=== PATIENT | female | born 1950 | race Caucasian/White ===

== ENCOUNTER 2018-03-05 21:10 | Inpatient (IN) | payer SELFPAY ==
[2018-03-05] MEDS: IV NORMAL SALINE 1000ML BAG 1,000 ML IV ×2 (21:48→23:15)
[2018-03-05] MEDS: ONDANSETRON PF 4 MG/2 ML VIAL. IV (21:49)
[2018-03-05 21:51] LABS: BASO % 0 % (0-3); EOS % 0 % (0-3); HEMATOCRIT 47.5 % (36.0-47.0); HEMOGLOBIN 16.3 g/dL (12.0-15.5); LYMPH # 0.5 x10^3/uL (1.0-4.8); LYMPH % 6 % (24-48); MEAN CORPUSCULAR HEMOGLOBIN 33 pg (25-35); MEAN CORPUSCULAR HGB CONC 34 g/dL (31-37); MEAN CORPUSCULAR VOLUME 97 fL (79-100); MONO # 0.3 x10^3/uL (0.0-1.1); MONO % 4 % (0-9); NEUT # 7.8 x10^3uL (1.8-7.7); NEUT % 90 % (31-73); PLATELET COUNT 244 x10^3/uL (140-400); RED BLOOD COUNT 4.88 x10^6/uL (3.50-5.40); RED CELL DISTRIBUTION WIDTH 13.6 % (11.5-14.5); WHITE BLOOD COUNT 8.6 x10^3/uL (4.0-11.0)
[2018-03-05 21:54] LABS: ADD MAN DIFF? YES; AGAP ISTAT 17 mmol/L (6-14); BUN ISTAT 23 mg/dL (8-26); CHLORIDE ISTAT 105 mmol/L (98-110); CREATININE ISTAT 0.7 mg/dL (0.5-1.4); GLUCOSE ISTAT 142 mg/dL (70-99); HEMATOCRIT ISTAT 49 % (36-40); HEMOGLOBIN ISTAT 16.7 g/dL (12-15); ION CA ISTAT 1.28 mmol/L (1.13-1.32); POTASSIUM ISTAT 3.7 mmol/L (3.5-5.0); SODIUM ISTAT 143 mmol/L (135-145); TOT CO2 ISTAT 25 mmol/L (23-32)
[2018-03-05] MEDS: fentaNYL PF VIAL 100 MCG/2 ML VIAL IV (22:00)
[2018-03-05 22:02] LABS: ANION GAP 10 (6-14); BLOOD UREA NITROGEN 22 mg/dL (7-20); BUN/CREATININE RATIO 28 (6-20); CALCIUM 10.6 mg/dL (8.5-10.1); CARBON DIOXIDE 27 mmol/L (21-32); CHLORIDE 105 mmol/L (98-107); CREATININE 0.8 mg/dL (0.6-1.0); GFR 71.8; GLUCOSE 143 mg/dL (70-99); POTASSIUM 3.8 mmol/L (3.5-5.1); SODIUM 142 mmol/L (136-145)
[2018-03-05 22:08] LABS: ALBUMIN 4.1 g/dL (3.4-5.0); ALBUMIN/GLOBULIN RATIO 1.1 (1.0-1.7); ALK PHOS 120 U/L (46-116); ALT (SGPT) 48 U/L (14-59); AST (SGOT) 36 U/L (15-37); LIPASE 69 U/L (73-393); TOTAL PROTEIN 7.9 g/dL (6.4-8.2)
[2018-03-05 22:11] LABS: LACTIC ACID 2.2 mmol/L (0.4-2.0)
[2018-03-05] MEDS: KETOROLAC 30 MG/ML INJ. IV (22:14)
[2018-03-05 22:22] LABS: % BANDS 13 % (0-9); % EOS 1 % (0-5); % LYMPHS 6 % (24-48); % MONOS 5 % (0-10); % SEGS 75 % (35-66)
[2018-03-05 22:23] LABS: PLT ESTIMATE ADEQUATE (ADEQUATE)
[2018-03-05 22:29] LABS: BILIRUBIN,URINE SMALL (NEG); CLARITY,URINE TURBID; GLUCOSE,URINE NEGATIVE (NEG); NITRITE,URINE NEGATIVE (NEG); PH,URINE 5.5; PROTEIN,URINE 30 mg/dL (NEG-TRACE); UROBILINOGEN,URINE 0.2 mg/dL (0.2 mg/dL)
[2018-03-05 22:34] LABS: COLOR,URINE YELLOW
[2018-03-05] MEDS: IOHEXOL 300 MG/ML 100ML VIAL. IV (22:38)
[2018-03-05 22:41] LABS: AMORPHOUS SEDIMENT,UR PRESENT /HPF; BACTERIA,URINE 0 /HPF (0-FEW); RBC,URINE RARE /HPF (0-2); SQUAMOUS EPITHELIAL CELL,UR FEW /LPF; WBC,URINE RARE /HPF (0-4)
[2018-03-05] MEDS ORDERED: CONTRAST GIVEN MC (22:45)
[2018-03-05] MEDS: CEFEPIME HCL 1 GM in IV NORMAL SALINE 50ML 50 ML IV (23:26)
[2018-03-05] MEDS: LIDOCAINE 2% VISCOUS 15 ML SOLUTION. SWSW (23:38)
[2018-03-06] MEDS: IV NORMAL SALINE 1000ML BAG 1,000 ML IV ×3 (00:02→15:17)
[2018-03-06] MEDS: ONDANSETRON PF 4 MG/2 ML VIAL. IV ×4 (01:21→20:13)
[2018-03-06 05:28] LABS: ADD MAN DIFF? NO
[2018-03-06 05:46] LABS: BASO % 1 % (0-3); EOS % 0 % (0-3); HEMATOCRIT 44.3 % (36.0-47.0); LYMPH # 0.3 x10^3/uL (1.0-4.8); LYMPH % 5 % (24-48); MEAN CORPUSCULAR HEMOGLOBIN 33 pg (25-35); MEAN CORPUSCULAR HGB CONC 34 g/dL (31-37); MEAN CORPUSCULAR VOLUME 98 fL (79-100); MONO # 0.4 x10^3/uL (0.0-1.1); MONO % 6 % (0-9); NEUT # 5.4 x10^3uL (1.8-7.7); NEUT % 88 % (31-73); PLATELET COUNT 198 x10^3/uL (140-400); RED CELL DISTRIBUTION WIDTH 13.9 % (11.5-14.5); WHITE BLOOD COUNT 6.1 x10^3/uL (4.0-11.0)
[2018-03-06 06:01] LABS: ALBUMIN 3.5 g/dL (3.4-5.0); ALK PHOS 101 U/L (46-116); ALT (SGPT) 77 U/L (14-59); ANION GAP 11 (6-14); AST (SGOT) 81 U/L (15-37); BLOOD UREA NITROGEN 22 mg/dL (7-20); BUN/CREATININE RATIO 31 (6-20); CALCIUM 9.3 mg/dL (8.5-10.1); CARBON DIOXIDE 25 mmol/L (21-32); CHLORIDE 108 mmol/L (98-107); CREATININE 0.7 mg/dL (0.6-1.0); GFR 83.7; GLUCOSE 127 mg/dL (70-99); POTASSIUM 4.4 mmol/L (3.5-5.1); SODIUM 144 mmol/L (136-145); TOTAL BILIRUBIN 1.2 mg/dL (0.2-1.0)
[2018-03-06] MEDS: CEFEPIME HCL IV Push 1 GM VIAL. IVP ×3 (06:34→22:35)
[2018-03-06] MEDS: fentaNYL PF VIAL 100 MCG/2 ML VIAL IV (11:22)
[2018-03-06] MEDS: ENOXAPARIN 30 MG/0.3 ML SYRINGE. SQ (12:00)
[2018-03-06] MEDS: ENOXAPARIN 40 MG/0.4 ML SYRINGE. SQ (18:16)
[2018-03-06] MEDS: FAMOTIDINE 20 MG/2 ML VIAL IVP (20:13)
[2018-03-07] MEDS: CEFEPIME HCL IV Push 1 GM VIAL. IVP ×3 (06:06→21:19)
[2018-03-07] MEDS: FAMOTIDINE 20 MG/2 ML VIAL IVP ×2 (08:46→21:16)
[2018-03-07] MEDS: LEVOTHYROXINE SODIUM 50 MCG in IV NORMAL SALINE 50ML 5 ML IVP (08:49)
[2018-03-07] MEDS: ENOXAPARIN 40 MG/0.4 ML SYRINGE. SQ (17:37)
[2018-03-07] MEDS: hydrALAZINE 20 MG/ML VIAL. IVP (23:45)
[2018-03-08] MEDS: CEFEPIME HCL IV Push 1 GM VIAL. IVP ×3 (06:10→21:23)
[2018-03-08 07:51] LABS: POC GLUCOSE 77 mg/dL (70-99)
[2018-03-08] MEDS: FAMOTIDINE 20 MG/2 ML VIAL IVP (09:22)
[2018-03-08] MEDS: LEVOTHYROXINE SODIUM 50 MCG in IV NORMAL SALINE 50ML 5 ML IVP (09:22)
[2018-03-08] MEDS: ENOXAPARIN 40 MG/0.4 ML SYRINGE. SQ (16:50)
[2018-03-08] MEDS: FAMOTIDINE 20 MG TABLET. PO (21:21)
[2018-03-09] MEDS: CEFEPIME HCL IV Push 1 GM VIAL. IVP ×3 (05:37→21:37)
[2018-03-09] MEDS: ACETAMINOPHEN 325 MG TABLET. PO ×2 (05:37→21:35)
[2018-03-09] MEDS: LEVOTHYROXINE 100 MCG TABLET PO (07:08)
[2018-03-09] MEDS: FAMOTIDINE 20 MG TABLET. PO ×2 (07:08→21:36)
[2018-03-09] MEDS: ENOXAPARIN 40 MG/0.4 ML SYRINGE. SQ (16:04)
[2018-03-09] MEDS: LACTOBACILLUS RHAMNOSUS GG 1 CAPSULE. PO (21:36)
[2018-03-10] MEDS: LEVOTHYROXINE 100 MCG TABLET PO (06:30)
[2018-03-10] MEDS: CEFEPIME HCL IV Push 1 GM VIAL. IVP (06:30)
[2018-03-10] MEDS: FAMOTIDINE 20 MG TABLET. PO (08:19)
[2018-03-10] MEDS: LACTOBACILLUS RHAMNOSUS GG 1 CAPSULE. PO (08:19)
[2018-03-10] MEDS: ACETAMINOPHEN 325 MG TABLET. PO (10:36)
== END 2018-03-10 14:35 | disposition home or self-care (01) | DRG 390 ==
LOC: 4 NORTH 23:06 → ER 21:10
DX: K56.609 Unspecified intestinal obstruction, unspecified as to partial versus complete obstruction (principal); E03.9 Hypothyroidism, unspecified; K56.7 Ileus, unspecified; R91.1 Solitary pulmonary nodule; Z85.42 Personal history of malignant neoplasm of other parts of uterus; Z90.49 Acquired absence of other specified parts of digestive tract; Z90.710 Acquired absence of both cervix and uterus; Z88.0 Allergy status to penicillin; Z88.1 Allergy status to other antibiotic agents; Z88.5 Allergy status to narcotic agent; Z88.2 Allergy status to sulfonamides
CPT/HCPCS: 36415; 74018; 74022; 74177; 80047; 80053; 81001; 82962; 83605; 83690; 85007; 85025; 87040; 87086; 96361; 96365; 96375; 99285; 99285-25; J0692; J1650; J1885; J2405; J3010; J7030; Q9967; S0028